=== PATIENT | male | born 1960 | race Caucasian/White ===

== ENCOUNTER 2020-05-03 18:07 | Inpatient (IN) | payer MEDICARE ==
[~2020-05-03] VITALS: Ht 162.6 cm; Wt 96.1 kg
[~2020-05-03 18:07] MED LIST: AMIO200T33 PO; APIX5TAB PO; CARV25TA55 PO; FURO1TAB33 PO; HYDR-4833 PO; LISI2.5T47 PO; TRAM-297 PO
[2020-05-03 23:48] LABS: Basophils # (auto) 0 10 ^3/uL (0-0.2); Eosinophils # (auto) 0 10 ^3/uL (0-0.8); Eosinophils % (auto) 0.1 % (0.0-7.0); Hematocrit 33.1 % (41.0-53.0); Hemoglobin 11.3 g/dL (13.5-17.5); Lymphocytes # (auto) 0.2 10 ^3/uL (0.4-5.4); Lymphocytes % (auto) 3.6 % (10.0-50.0); Mean Corpuscular Hemoglobin 30.3 pg (28.0-32.0); Mean Corpuscular Volume 89.1 fL (80.0-100.0); Monocytes # (auto) 0.3 10 ^3/uL (0-1.3); Monocytes % (auto) 4.4 % (0.0-12.0); Neutrophils # (auto) 5.4 10 ^3/uL (1.6-8.6); Neutrophils % (auto) 91.9 % (37.0-80.0); Nucleated Red Blood Cells % 0.1 %; Platelet Count (auto) 178 10^3/uL (140-450); Red Blood Cells 3.72 10^6/uL (4.5-5.90); Red Cell Distribution Width 13.3 % (11.8-14.3); White Blood Cell 5.9 10^3/uL (4.4-10.8)
[2020-05-04] LABS: Urine Bacteria NONE SEEN /hpf (None Seen); Urine Blood 2+ /uL (Negative); Urine Hyaline Cast FEW /lpf (0 - 2); Urine Mucus FEW (None Seen); Urine Specific Gravity 1.019 (1.001-1.035); Urine WBC 4 /hpf (0 - 3)
[2020-05-04 00:02] LABS: INR 1.27 (0.9-1.15); Partial Thromboplastin Time 42.9 sec (23.0-31.2)
[2020-05-04 00:03] LABS: Albumin 2.8 g/dL (3.4-5.0); Anion Gap 7 (5-15); BUN/Creatinine Ratio 30.5; Blood Urea Nitrogen 32 mg/dL (7-18); Calcium 9.3 mg/dL (8.5-10.1); Carbon Dioxide 25 mmol/L (21-32); Chloride 100 mmol/L (98-107); GFR African American 92 mL/min; GFR Non-African American 76 mL/min; Glucose 95 mg/dL (74-106); Magnesium 2.2 mg/dL (1.6-2.6); Potassium 4.3 mmol/L (3.5-5.1); Sodium 132 mmol/L (136-145)
[2020-05-04 00:08] LABS: Alanine Aminotransferase 16 U/L (16-61); Alkaline Phosphatase 72 U/L (45-117); Aspartate Aminotransferase 20 U/L (15-37); Bilirubin, Total 0.7 mg/dL (0.2-1.0); Total Protein 7.3 g/dL (6.4-8.2)
[2020-05-04] MEDS ORDERED: DexAMETHasone SOD PHOS 4 MG/1ML SDV INJ IV SCH ×2 (02:00→10:00)
[2020-05-04] MEDS ORDERED: AZITHROMYCIN 500MG/ 250ML 250 ML IV SCH (02:00)
[2020-05-04] MEDS ORDERED: NITROGLYCERIN 0.4 MG SL TAB SL PRN (02:00)
[2020-05-04] MEDS ORDERED: ONDANSETRON HCL 4 MG/2 ML VIAL IV PRN (02:00)
[2020-05-04] MEDS ORDERED: MORPHINE SULFATE 4 MG/ML SYR/VIAL IV PRN (02:00)
[2020-05-04] MEDS ORDERED: MORPHINE SULF INJ 2 MG/ML SYRINGE 1ML IV PRN (02:00)
[2020-05-04] MEDS ORDERED: ACETAMINOPHEN 500 MG TAB PO PRN (02:00)
--- NOTE | 2020-05-04 03:40 | NUR ---
TELE ADMIT FROM ER Assumed care of patient who is COVID positive, alert and oriented, currently on 10L face mask with no S/S of distress or SOB noted at this time, 02 Saturation 93%. Patient is bedrest, bedside commode with max assist. POC discussed with patient, all questions answered, verbalized understanding. Patient oriented to room and hospital policies. Bed is locked, in lowest position, side railsx2, alarm on. Call light within reach and patient is encouraged to call for assistance as needed. Will continue to monitor Q1hr/PRN.
[2020-05-04 04:23] VITALS: BP 105/70
[2020-05-04] MEDS ORDERED: CARV6.2551 PO (04:51)
[2020-05-04 05:00] VITALS: BP 105/70
--- NOTE | 2020-05-04 07:37 | NUR ---
CARE ENDORSED TO DAY SHIFT RN
[2020-05-04 08:00] VITALS: BP 111/69
--- NOTE | 2020-05-04 09:30 | NUR ---
DR UZMA LANG
[2020-05-04] MEDS ORDERED: FUROSEMIDE 20 MG/2 ML VIAL IV ONE (09:45)
[2020-05-04] MEDS: AZITHROMYCIN 500MG/ 250ML 250 ML IV SCH (10:00)
--- NOTE | 2020-05-04 11:00 | NUR ---
WOUND CARE NOTE: IN TO SEE PATIENT AT THIS TIME PER WOUND CARE CONSULT REQUEST. PATIENT ADMITTED TO [facility] WITH DIAGNOSIS OF COVID 19, PNA. CURRENT DANUTA SCORE IS 16. PATIENT HAS HISTORY WITH CHRONIC VENOUS STASIS ULCERS TO THE LEFT CALF. PATIENT STATES THAT WOUNDS OPEN AND THEN CLOSE, AGAIN AND AGAIN. CURRENTLY WOUNDS ARE ALL SCABBED CLOSED. PATIENT FURTHER STATES THAT PATIENT APPLIES SILVADENE CREAM PER MD ORDER TO THESE WOUNDS, AND WOULD LIKE TO CONTINUE WITH SILVADENE CREAM TREATMENT. WOUND PHOTOS TAKEN UPON ADMIT, AND AGAIN AT THIS TIME FOR REFERENCE. NO OTHER WOUND NOTED. RECOMMEND: FREQUENT TURN SCHEDULE Q 2 HOURS, PRN CONDITION PERMITS, WITH PRESSURE REDISTRIBUTION USING PILLOWS/WEDGES, ELEVATION OF BLE UP ON PILLOWS AND ELEVATION OF BED KNEE GATCH FOR EDEMA CONTROL, DAILY/PRN APPLICATION WITH SILVADENE CREAM TO SCABBED WOUNDS OF LLE, SKIN/WOUND CARE PLAN. NO FURTHER WOUND CARE MONITORING NEEDED. Addendum: 05/04/20 at 1624 by Cathy Trejo RN Amended: Links added.
--- NOTE | 2020-05-04 11:30 | NUR ---
DR EDUIN LANG
[2020-05-04 12:03] LABS: Magnesium 2.4 mg/dL (1.6-2.6)
[2020-05-04] MEDS: APIXABAN 5 MG TAB PO SCH ×2 (12:04→21:48)
[2020-05-04 12:10] LABS: Lactate Dehydrogenase 240 U/L (87-241)
[2020-05-04] MEDS ORDERED: REMDESIVIR PER PHARMACY 0 ML IV SCH (12:15)
[2020-05-04 12:16] LABS: CRP High Sensitivity > 19 mg/dL (< 0.3)
[2020-05-04] MEDS ORDERED: REMDESIVIR 200 MG in NS 210ml LOADING DOSE ADULT IV ONE (15:00)
--- NOTE | 2020-05-04 15:30 | NUR ---
REMDESIVIR LOADING DOSE STARTED
--- NOTE | 2020-05-04 17:00 | NUR ---
ARLENE JULIEN BOW STAPLER ROUNDING.
--- NOTE | 2020-05-04 17:00 | NUR ---
PATIENT TOLERATED REMDESIVIR WELL, VS FOLLOWS 90% 69 28 127/81 92% 61 28 122/72 90% 58 30 116/75
[2020-05-04 17:17] VITALS: BP 116/75
--- NOTE | 2020-05-04 18:30 | NUR ---
UNABLE TO OBTAIN PHONE NUMBER TO [facility] FOR PACEMAKER INTERROGATION.
[2020-05-04 22:00] VITALS: BP 134/73
[2020-05-05 05:00] VITALS: BP 125/77
--- NOTE | 2020-05-05 07:00 | NUR ---
Opening Shift Note Assumed care of patient, awake and alert. A/O X 4. No S/S of distress/SOB or pain. Patient is on 15L Oxymizer. Lungs sound diminished bilaterally. Skin is warm and dry. Lower legs appear to have venous stasis ulceration and discoloration. Feet are cold and pulses are felt at the posterior tibialis point. Instructed on POC and to call for assist PRN. Safety measures are in place and the call light is within reach of the patient. Will continue to monitor for changes Q1hr and PRN.
[2020-05-05 07:02] LABS: Albumin 2.3 g/dL (3.4-5.0); Anion Gap 5 (5-15); Blood Urea Nitrogen 22 mg/dL (7-18); Calcium 9.7 mg/dL (8.5-10.1); Carbon Dioxide 25 mmol/L (21-32); Chloride 106 mmol/L (98-107); Glucose 108 mg/dL (74-106); Potassium 3.7 mmol/L (3.5-5.1); Sodium 136 mmol/L (136-145)
[2020-05-05 07:03] LABS: Basophils # (auto) 0 10 ^3/uL (0-0.2); Basophils % (auto) 0.1 % (0.0-2.0); Eosinophils # (auto) 0 10 ^3/uL (0-0.8); Eosinophils % (auto) 0.7 % (0.0-7.0); Hematocrit 34.4 % (41.0-53.0); Hemoglobin 11.5 g/dL (13.5-17.5); Lymphocytes # (auto) 0.3 10 ^3/uL (0.4-5.4); Lymphocytes % (auto) 5.8 % (10.0-50.0); Mean Corpuscular Hemoglobin 29.9 pg (28.0-32.0); Mean Corpuscular Hgb Conc. 33.5 g/dL (32.0-36.0); Mean Corpuscular Volume 89.3 fL (80.0-100.0); Monocytes # (auto) 0.3 10 ^3/uL (0-1.3); Neutrophils # (auto) 3.9 10 ^3/uL (1.6-8.6); Neutrophils % (auto) 87.4 % (37.0-80.0); Nucleated Red Blood Cells % 0.1 %; Platelet Count (auto) 179 10^3/uL (140-450); Red Blood Cells 3.85 10^6/uL (4.5-5.90); Red Cell Distribution Width 13.7 % (11.8-14.3); White Blood Cell 4.4 10^3/uL (4.4-10.8)
[2020-05-05 07:12] LABS: Alanine Aminotransferase 14 U/L (16-61); Alkaline Phosphatase 66 U/L (45-117); Aspartate Aminotransferase 18 U/L (15-37); Bilirubin, Total 0.5 mg/dL (0.2-1.0); CRP High Sensitivity > 19 mg/dL (< 0.3); GFR African American 113 mL/min; GFR Non-African American 94 mL/min; Total Protein 7.2 g/dL (6.4-8.2)
[2020-05-05 08:22] VITALS: BP 131/85
[2020-05-05 09:00] VITALS: BP 131/85
[2020-05-05] MEDS: APIXABAN 5 MG TAB PO SCH ×2 (09:45→21:43)
[2020-05-05] MEDS: CHOLECALCIFEROL (VITD3) 2,000 UNIT CAP PO SCH (09:45)
[2020-05-05] MEDS: ASCORBIC ACID 1,000 MG TAB PO SCH (09:45)
[2020-05-05] MEDS: ZINC SULFATE 220mg CAP or TAB PO SCH (09:45)
[2020-05-05] MEDS: DexAMETHasone SOD PHOS 10MG/1ML VIAL INJ IV SCH (09:46)
[2020-05-05] MEDS: PANTOPRAZOLE 40 MG/10 ML VIAL INJ IV SCH (09:46)
[2020-05-05] MEDS: FUROSEMIDE 20 MG/2 ML VIAL IV SCH (09:46)
[2020-05-05] MEDS: AZITHROMYCIN 500MG/ 250ML 250 ML IV SCH (11:00)
--- NOTE | 2020-05-05 12:25 | NUR ---
Dr. Montoya office called The office of the doctor who placed the patient's pacemaker was called and informed that an interrogation of the device is needed. Spoke with Daniela. She advised me that she would let the doctor know and get back to me. Hospital contact information provided. Awaiting her call back. Office number [phone].
[2020-05-05 13:00] VITALS: BP 127/73
[2020-05-05] MEDS: REMDESIVIR 100 MG in SODIUM CHL 0.9% 250 ML IV SCH (16:20)
--- NOTE | 2020-05-05 16:20 | NUR ---
Remdesivir treatment vitals HR 60, RR 36, BP 129/79, Temp 96.2, O2 93%. Addendum: 05/05/20 at 1713 by Argentina Hall RN RN 1635 vitals HR 61, RR 40, BP 118/85, temp 98.0, O2 90%. Addendum: 05/05/20 at 1856 by Argentina Hall RN RN Post treatment vitals HR 72, RR 36, BP 120/75, Temp 97.6, O2 91%.
[2020-05-05] MEDS: SILVER SULFADIAZINE 1 % TOPICAL CREAM 50GM TOP SCH (16:45)
[2020-05-05 17:00] VITALS: BP 129/79
--- NOTE | 2020-05-05 17:05 | NUR ---
Patient unable to tolerate any significant movement at this time. Addendum: 05/05/20 at 1706 by Argentina Hall RN RN Amended: Links added.
[2020-05-05 22:00] VITALS: BP 115/70
[2020-05-06 05:00] VITALS: BP 119/73
--- NOTE | 2020-05-06 07:10 | NUR ---
Opening Shift Note Assumed care of patient, awake and alert. A/O X 4. No S/S of distress/SOB or pain. Patient is on 10L Oxymizer. Lungs sound diminished bilaterally. Skin is warm and dry. Lower legs appear to have venous stasis ulceration and discoloration. Feet are cold and pulses are felt at the posterior tibialis point. Patient reports he feels much better and his sense of taste and smell have returned. Instructed on POC and to call for assist PRN. Safety measures are in place and the call light is within reach of the patient. Will continue to monitor for changes Q1hr and PRN.
[2020-05-06 07:18] LABS: Basophils # (auto) 0 10 ^3/uL (0-0.2); Eosinophils # (auto) 0 10 ^3/uL (0-0.8); Hematocrit 33.6 % (41.0-53.0); Hemoglobin 11.5 g/dL (13.5-17.5); Lymphocytes # (auto) 0.3 10 ^3/uL (0.4-5.4); Lymphocytes % (auto) 4.7 % (10.0-50.0); Mean Corpuscular Hemoglobin 30.3 pg (28.0-32.0); Mean Corpuscular Hgb Conc. 34.3 g/dL (32.0-36.0); Mean Corpuscular Volume 88.3 fL (80.0-100.0); Monocytes # (auto) 0.4 10 ^3/uL (0-1.3); Monocytes % (auto) 6.7 % (0.0-12.0); Neutrophils % (auto) 88.6 % (37.0-80.0); Platelet Count (auto) 204 10^3/uL (140-450); Red Cell Distribution Width 13.4 % (11.8-14.3); White Blood Cell 5.7 10^3/uL (4.4-10.8)
[2020-05-06 07:22] LABS: Albumin 2.2 g/dL (3.4-5.0); Calcium 9.6 mg/dL (8.5-10.1); Potassium 4.1 mmol/L (3.5-5.1)
--- NOTE | 2020-05-06 07:30 | NUR ---
Dr. Berman at bedside Dr. Cullen parker. Updated on the patient's status.
[2020-05-06 07:32] LABS: BUN/Creatinine Ratio 30.7; Bilirubin, Total 0.5 mg/dL (0.2-1.0); CRP High Sensitivity 18.9 mg/dL (< 0.3)
[2020-05-06 09:00] VITALS: BP 114/68
[2020-05-06] MEDS: PANTOPRAZOLE 40 MG/10 ML VIAL INJ IV SCH (10:22)
[2020-05-06] MEDS: DexAMETHasone SOD PHOS 10MG/1ML VIAL INJ IV SCH (10:22)
[2020-05-06] MEDS: ASCORBIC ACID 1,000 MG TAB PO SCH (10:23)
[2020-05-06] MEDS: CHOLECALCIFEROL (VITD3) 2,000 UNIT CAP PO SCH (10:23)
[2020-05-06] MEDS: APIXABAN 5 MG TAB PO SCH ×2 (10:23→22:01)
[2020-05-06] MEDS: ZINC SULFATE 220mg CAP or TAB PO SCH (10:23)
[2020-05-06] MEDS: AZITHROMYCIN 500MG/ 250ML 250 ML IV SCH (10:23)
[2020-05-06] MEDS: FUROSEMIDE 20 MG/2 ML VIAL IV SCH (12:00)
[2020-05-06 13:00] VITALS: BP 123/82
[2020-05-06] MEDS: REMDESIVIR 100 MG in SODIUM CHL 0.9% 250 ML IV SCH (15:20)
--- NOTE | 2020-05-06 15:20 | NUR ---
Remdesivir Treatment vitals Pre-treatment HR 61, RR 28, BP 123/75, Temp 97.4, O2 88%. Addendum: 05/06/20 at 1658 by Argentina Hall RN RN 1535 vitals HR 61, RR 22, BP 127/66, Temp 98.3, O2 89%. Addendum: 05/06/20 at 1912 by Argentina Hall RN RN Post treatment vitals HR 56, RR 36, BP 118/73, O2 90%.
--- NOTE | 2020-05-06 15:49 | NUR ---
Bereket LOUVER MORTISER OPERATOR at bedside LOUVER MORTISER OPERATOR Bereket at bedside discussing the POC with the patient. All questions and concerns were answered at this time.
[2020-05-06] MEDS: SILVER SULFADIAZINE 1 % TOPICAL CREAM 50GM TOP SCH (16:55)
--- NOTE | 2020-05-06 16:59 | NUR ---
Patient unable to tolerate at this time. 10L O2. Addendum: 05/06/20 at 1659 by Argentina Hall RN RN Amended: Links added.
[2020-05-06 17:00] VITALS: BP 133/83
--- NOTE | 2020-05-06 19:50 | NUR ---
Opening shift note Assumed care of patient from day shift RN. Patient A&Ox4, respirations even and non-labored without s/s of distress at this time. Discussed POC and answered patients questions regarding his bed assignment, patient verbalized understanding. Bed in lowest locked position with 2 side rails up, call light within reach. Will continue to monitor Q1hr and PRN.
[2020-05-06 21:38] VITALS: BP 123/81
[2020-05-07] VITALS (7 sets, daily range): BP systolic 119–138; BP diastolic 73–82
--- NOTE | 2020-05-07 07:45 | NUR ---
Opening Shift Note Assumed care of patient, awake and alert. No S/S of distress/SOB or pain. Patient is on 10L Oxymizer. Instructed on POC and to call for assist PRN, will continue to monitor for changes Q1hr and PRN. Bed is locked and in lowest position. Call light within reach.
--- NOTE | 2020-05-07 08:04 | NUR ---
Closing shift note Patient resting without s/s of distress at this time. Endorsed care to day shift RN
--- NOTE | 2020-05-07 09:55 | NUR ---
Nutrition Assessment Est energy needs 5200-0869 kcal (14-18 kcal/kg BW 102.5kg) est protein needs 59-77g (1-1.3g/kg IBW 59kg) will monitor and reassess prn. Addendum: 05/07/20 at [address] Amended: Links added.
[2020-05-07] MEDS: ASCORBIC ACID 1,000 MG TAB PO SCH (10:00)
[2020-05-07] MEDS: AZITHROMYCIN 500MG/ 250ML 250 ML IV SCH (10:09)
[2020-05-07] MEDS: FUROSEMIDE 20 MG/2 ML VIAL IV SCH (10:09)
[2020-05-07] MEDS: PANTOPRAZOLE 40 MG/10 ML VIAL INJ IV SCH (10:10)
[2020-05-07] MEDS: APIXABAN 5 MG TAB PO SCH ×2 (10:10→22:14)
[2020-05-07] MEDS: CHOLECALCIFEROL (VITD3) 2,000 UNIT CAP PO SCH (10:10)
[2020-05-07] MEDS: ZINC SULFATE 220mg CAP or TAB PO SCH (10:11)
[2020-05-07] MEDS: SILVER SULFADIAZINE 1 % TOPICAL CREAM 50GM TOP SCH (10:11)
[2020-05-07 12:16] LABS: Basophils # (auto) 0 10 ^3/uL (0-0.2); Eosinophils # (auto) 0 10 ^3/uL (0-0.8); Hematocrit 33.7 % (41.0-53.0); Hemoglobin 11.8 g/dL (13.5-17.5); Lymphocytes # (auto) 0.4 10 ^3/uL (0.4-5.4); Lymphocytes % (auto) 3.9 % (10.0-50.0); Mean Corpuscular Hemoglobin 30.9 pg (28.0-32.0); Mean Corpuscular Hgb Conc. 35.1 g/dL (32.0-36.0); Mean Corpuscular Volume 88.1 fL (80.0-100.0); Monocytes # (auto) 0.9 10 ^3/uL (0-1.3); Monocytes % (auto) 8.2 % (0.0-12.0); Neutrophils # (auto) 9.5 10 ^3/uL (1.6-8.6); Neutrophils % (auto) 87.9 % (37.0-80.0); Nucleated Red Blood Cells % 0.1 %; Platelet Count (auto) 239 10^3/uL (140-450); Red Blood Cells 3.82 10^6/uL (4.5-5.90); Red Cell Distribution Width 13.4 % (11.8-14.3); White Blood Cell 10.8 10^3/uL (4.4-10.8)
[2020-05-07 12:54] LABS: Potassium 4.1 mmol/L (3.5-5.1)
[2020-05-07 13:06] LABS: Albumin 2.5 g/dL (3.4-5.0); BUN/Creatinine Ratio 28.3; Bilirubin, Total 0.6 mg/dL (0.2-1.0); Calcium 9.8 mg/dL (8.5-10.1)
[2020-05-07] MEDS: DexAMETHasone SOD PHOS 10MG/1ML VIAL INJ IV SCH (14:06)
[2020-05-07] MEDS: REMDESIVIR 100 MG in SODIUM CHL 0.9% 250 ML IV SCH (15:23)
--- NOTE | 2020-05-07 16:17 | NUR ---
Patient requested that P.T. Evaluation be done tomorrow.
--- NOTE | 2020-05-07 16:55 | NUR ---
IV REMOVAL AND INSERTION IV access obtained, via clean sterile technique by inserting [22] gauge catheter at [LEFT FOREARM] after [2] attempt(s). IV secured properly. No trauma to site. Patient tolerated well. IV removal IV DC'd ON RIGHT AC with clean sterile technique, catheter fully intact. Pressure dressing applied to site. Patient tolerated well.
[2020-05-08 05:00] VITALS: BP 127/78
--- NOTE | 2020-05-08 07:13 | NUR ---
PT RESTED WELL THROUGHOUT THE NIGHT. IS NOW AWAKE . NO DISTRESS.
--- NOTE | 2020-05-08 07:30 | NUR ---
Opening Shift Note RECEIVED REPORT FROM NOC RN. Assumed care of patient, awake and alert. PATIENT ON OXYGEN AT 10 LPM VIA OXYMIZER WITH no S/S of distress/SOB or pain. BED IN LOWEST, LOCKED POSITION WITH SIDERAILS UP x2 AND CALL LIGHT WITHIN REACH. Instructed on POC and to call for assist PRN, will continue to monitor for changes Q1hr and PRN.
[2020-05-08 09:00] VITALS: BP 129/72
[2020-05-08] MEDS: FUROSEMIDE 20 MG/2 ML VIAL IV SCH (11:00)
[2020-05-08] MEDS: ZINC SULFATE 220mg CAP or TAB PO SCH (11:00)
[2020-05-08] MEDS: APIXABAN 5 MG TAB PO SCH ×2 (11:00→21:45)
[2020-05-08] MEDS: DexAMETHasone SOD PHOS 10MG/1ML VIAL INJ IV SCH (11:00)
[2020-05-08] MEDS: PANTOPRAZOLE 40 MG/10 ML VIAL INJ IV SCH (11:00)
[2020-05-08] MEDS: CHOLECALCIFEROL (VITD3) 2,000 UNIT CAP PO SCH (11:01)
[2020-05-08] MEDS: SILVER SULFADIAZINE 1 % TOPICAL CREAM 50GM TOP SCH (11:01)
[2020-05-08] MEDS: ASCORBIC ACID 1,000 MG TAB PO SCH (11:01)
[2020-05-08 11:05] LABS: Hematocrit 34.7 % (41.0-53.0); Hemoglobin 11.8 g/dL (13.5-17.5); Mean Corpuscular Hemoglobin 30.1 pg (28.0-32.0); Mean Corpuscular Volume 88.6 fL (80.0-100.0); Platelet Count (auto) 227 10^3/uL (140-450); Red Blood Cells 3.91 10^6/uL (4.5-5.90); Red Cell Distribution Width 13.5 % (11.8-14.3)
[2020-05-08 11:15] LABS: Basophils % (manual) 0 (0.0-2.0); Blast Cells 0; Eosinophils % (manual) 0 (0-7); Potassium 4.4 mmol/L (3.5-5.1); Promyelocytes % 0; Reactive Lymphocytes 0
[2020-05-08 11:25] LABS: Albumin 2.4 g/dL (3.4-5.0); Bilirubin, Total 0.5 mg/dL (0.2-1.0); CRP High Sensitivity 7.18 mg/dL (< 0.3); Calcium 9.3 mg/dL (8.5-10.1); Total Protein 7.1 g/dL (6.4-8.2)
[2020-05-08 13:00] VITALS: BP 127/66
[2020-05-08] MEDS: AZITHROMYCIN 500MG/ 250ML 250 ML IV SCH (14:06)
[2020-05-08 14:30] LABS: Band Neutrophils % (manual) 1; Lymphocytes % (manual) 6 (10.0-50.0); Metamyelocytes % 1; Monocytes % (manual) 6 (0-12); Myelocytes % 3
[2020-05-08] MEDS: REMDESIVIR 100 MG in SODIUM CHL 0.9% 250 ML IV SCH (16:36)
[2020-05-08 17:00] VITALS: BP 125/74
--- NOTE | 2020-05-08 19:43 | NUR ---
Opening Shift Note Assumed care of patient, awake and alert. No S/S of distress/SOB or pain. Instructed on POC and to call for assist PRN, will continue to monitor for changes Q1hr and PRN. Bed in low position and call light within reach. Fall precautions in place.
[2020-05-09 01:24] VITALS: BP 133/78
[2020-05-09 05:30] VITALS: BP 130/80
[2020-05-09 06:55] LABS: Hematocrit 33.4 % (41.0-53.0); Hemoglobin 11.6 g/dL (13.5-17.5); Mean Corpuscular Hemoglobin 30.4 pg (28.0-32.0); Mean Corpuscular Hgb Conc. 34.6 g/dL (32.0-36.0); Mean Corpuscular Volume 87.9 fL (80.0-100.0); Platelet Count (auto) 198 10^3/uL (140-450); Red Cell Distribution Width 13.4 % (11.8-14.3); White Blood Cell 7.7 10^3/uL (4.4-10.8)
--- NOTE | 2020-05-09 07:00 | NUR ---
REPORT GIVEN TO DAYSHIFT RN PATIENT DENIES SOB DISTRESS OR PAIN
[2020-05-09 07:24] LABS: Band Neutrophils % (manual) 0; Basophils % (manual) 0 (0.0-2.0); Blast Cells 0; Metamyelocytes % 0; Promyelocytes % 0; Reactive Lymphocytes 0
[2020-05-09 08:49] LABS: Eosinophils % (manual) 1 (0-7); Lymphocytes % (manual) 5 (10.0-50.0); Monocytes % (manual) 4 (0-12); Myelocytes % 4
[2020-05-09] MEDS: DexAMETHasone SOD PHOS 10MG/1ML VIAL INJ IV SCH (09:54)
[2020-05-09] MEDS: AZITHROMYCIN 500MG/ 250ML 250 ML IV SCH (09:55)
[2020-05-09] MEDS: PANTOPRAZOLE 40 MG/10 ML VIAL INJ IV SCH (09:55)
[2020-05-09] MEDS: FUROSEMIDE 20 MG/2 ML VIAL IV SCH (09:55)
[2020-05-09] MEDS: CHOLECALCIFEROL (VITD3) 2,000 UNIT CAP PO SCH (09:56)
[2020-05-09] MEDS: APIXABAN 5 MG TAB PO SCH ×2 (09:56→21:38)
[2020-05-09] MEDS: ASCORBIC ACID 1,000 MG TAB PO SCH (09:56)
[2020-05-09] MEDS: ZINC SULFATE 220mg CAP or TAB PO SCH (09:56)
[2020-05-09] MEDS: SILVER SULFADIAZINE 1 % TOPICAL CREAM 50GM TOP SCH (09:57)
[2020-05-09 13:00] VITALS: BP 118/80
[2020-05-09] MEDS: DOCUSATE SOD 100 MG CAP PO PRN (16:37)
[2020-05-09 17:00] VITALS: BP 120/71
--- NOTE | 2020-05-09 20:50 | NUR ---
PATIENT AWAKE AND ALERT, RESTING IN BED DENIES SOB DISTRESS OR PAIN.
--- NOTE | 2020-05-09 20:50 | NUR ---
Patient educated on how to use Incentive spirometer patient verbalized understanding
[2020-05-09 22:00] VITALS: BP 107/65
[2020-05-10 05:12] VITALS: BP 109/73
--- NOTE | 2020-05-10 06:50 | NUR ---
Report given to dayshift RN patient denies sob distress or pain.
[2020-05-10 08:27] VITALS: BP 127/80
[2020-05-10 09:00] VITALS: BP 127/80
[2020-05-10] MEDS: CHOLECALCIFEROL (VITD3) 2,000 UNIT CAP PO SCH (10:00)
--- NOTE | 2020-05-10 10:00 | NUR ---
PATIENT O2 DECREASED FROM 10 LTRS DOWN TO 8 LTRS. O2 PERCENTAGE 93%
[2020-05-10] MEDS: AZITHROMYCIN 500MG/ 250ML 250 ML IV SCH (10:29)
[2020-05-10] MEDS: PANTOPRAZOLE 40 MG/10 ML VIAL INJ IV SCH (10:29)
[2020-05-10] MEDS: DexAMETHasone SOD PHOS 10MG/1ML VIAL INJ IV SCH (10:29)
[2020-05-10] MEDS: ZINC SULFATE 220mg CAP or TAB PO SCH (10:30)
[2020-05-10] MEDS: ASCORBIC ACID 1,000 MG TAB PO SCH (10:30)
[2020-05-10] MEDS: APIXABAN 5 MG TAB PO SCH ×2 (10:30→21:37)
[2020-05-10] MEDS: SILVER SULFADIAZINE 1 % TOPICAL CREAM 50GM TOP SCH (10:31)
[2020-05-10] MEDS: FUROSEMIDE 40 MG/4 ML VIAL IV SCH (10:47)
--- NOTE | 2020-05-10 11:41 | NUR ---
Nutrition Followup Note Wt 98.0kg Pt is covid positive in covid isolation. Pt is no signs of distress per RN note. Pt appetite appears to be fair aeb pt with 50-75% po intake of Cardiac 2g Na diet. Est energy needs 6584-7142 kcal (14-18 kcal/kg BW 102.5kg) est protein needs 59-77g (1-1.3g/kg IBW 59kg) will monitor and reassess prn. Labs: BUN 34H, GLUC 163H, Alb 2.4L BM: Pt with 1 BM 05/07 per Rn note Skin: BS 18 mod risk, full details in transitional care manager note PES: Obesity r/t caloric intake in excess of needs aeb pt with a BMI of 38.8kg/m2 Comments 1) Continue to monitor po intake, labs, skin 2) refer pt to [facility] on Dc 3) Continue current plan of care Expected Outcomes/Goals: 1) pt po intake >75% 2) pt to gain no further wt while in hospital 3) f/u 3-5 days
--- NOTE | 2020-05-10 13:00 | NUR ---
PATIENT O2 DECREASED FROM 8 LTRS DOWN TO 6 LTRS. PATIENT O2 LEVEL 93%
[2020-05-10] MEDS: DOCUSATE SOD 100 MG CAP PO PRN (13:38)
--- NOTE | 2020-05-10 16:25 | NUR ---
PATIENT PLACED ON 6 LTRS NASAL CANULA. O2 SATURATION 93%
[2020-05-10] MEDS: LACTULOSE 20Gm/30ML SOLN PO PRN (19:00)
--- NOTE | 2020-05-10 20:00 | NUR ---
Opening Shift Note Assumed care of patient, awake and alert. No S/S of distress/SOB or pain. Patient is on 6L NC. Instructed on POC and to call for assist PRN, will continue to monitor for changes Q1hr and PRN.
[2020-05-11] MEDS: LACTULOSE 20Gm/30ML SOLN PO PRN (01:03)
[2020-05-11 07:01] LABS: Hematocrit 33.7 % (41.0-53.0); Hemoglobin 11.4 g/dL (13.5-17.5); Mean Corpuscular Hemoglobin 30.5 pg (28.0-32.0); Mean Corpuscular Hgb Conc. 33.9 g/dL (32.0-36.0); Platelet Count (auto) 185 10^3/uL (140-450); Red Blood Cells 3.74 10^6/uL (4.5-5.90); Red Cell Distribution Width 13.5 % (11.8-14.3); White Blood Cell 7.3 10^3/uL (4.4-10.8)
[2020-05-11 07:42] LABS: Potassium 4.1 mmol/L (3.5-5.1)
[2020-05-11 07:52] LABS: Basophils % (manual) 0 (0.0-2.0); Blast Cells 0; Eosinophils % (manual) 0 (0-7); Metamyelocytes % 0; Promyelocytes % 0; Reactive Lymphocytes 0
[2020-05-11 08:08] LABS: Albumin 2.4 g/dL (3.4-5.0); BUN/Creatinine Ratio 27.7; Bilirubin, Total 0.6 mg/dL (0.2-1.0); CRP High Sensitivity 6.06 mg/dL (< 0.3); Calcium 9.4 mg/dL (8.5-10.1); Magnesium 2.5 mg/dL (1.6-2.6); Phosphorus 2.8 mg/dL (2.5-4.90); Total Protein 6.8 g/dL (6.4-8.2)
[2020-05-11 08:37] LABS: Band Neutrophils % (manual) 2; Lymphocytes % (manual) 3 (10.0-50.0); Monocytes % (manual) 9 (0-12); Myelocytes % 1
[2020-05-11 09:00] VITALS: BP 119/72
[2020-05-11] MEDS: FUROSEMIDE 40 MG/4 ML VIAL IV SCH ×2 (10:23→10:33)
[2020-05-11] MEDS: PANTOPRAZOLE 40 MG/10 ML VIAL INJ IV SCH ×2 (10:24→10:33)
[2020-05-11] MEDS: APIXABAN 5 MG TAB PO SCH ×3 (10:24→22:19)
[2020-05-11] MEDS: CHOLECALCIFEROL (VITD3) 2,000 UNIT CAP PO SCH ×2 (10:24→10:34)
[2020-05-11] MEDS: ASCORBIC ACID 1,000 MG TAB PO SCH ×2 (10:24→10:34)
[2020-05-11] MEDS: ZINC SULFATE 220mg CAP or TAB PO SCH ×2 (10:24→10:33)
[2020-05-11] MEDS: SILVER SULFADIAZINE 1 % TOPICAL CREAM 50GM TOP SCH ×2 (10:25→10:34)
[2020-05-11] MEDS: DexAMETHasone SOD PHOS 10MG/1ML VIAL INJ IV SCH ×2 (10:25→10:32)
[2020-05-11 13:00] VITALS: BP 107/73
--- NOTE | 2020-05-11 15:52 | NUR ---
Assessment Patient is a 59- year-old male who is alert and oriented. Prior to admission patient lived home with his brother Sebastien and functioned independently. Patient can care for his own ADLs. Patient has a cane, two walkers and an electric scooter for home use. Per patient he will return home to his prior living arrangements post discharge and his brother Sebastien will transport patient home at anytime on discharge day. Advised patient there is a social service consult for home oxygen and home health services for a safety evaluation. Per patient he is on service with [facility] but would like to change home health services with [facility]. Informed patient he has the right to participate in all discharge planning. Patient does not have an advance directive. Patient has been provided with information for an advanced directive. Patient verbalized understanding and agrees to discharge plan. Faxed clinical information to [facility] and [facility]. Per Mariola with [facility] order has been received and they will deliver portable and concentrate oxygen to patient home and family will bring portable to hospital upon d/c day. Per Roxanne with [facility] Ph: [phone] patient has been accepted and service to start within 24-48hrs upon d.c day. Addendum: 05/11/20 at 1557 by CLARISA MOORE Amended: Links added.
[2020-05-11 16:00] VITALS: BP 109/73
--- NOTE | 2020-05-11 19:45 | NUR ---
Opening Shift Note Assumed care of patient. Awake, alert and oriented x4. No S/S of distress/SOB or pain. Pt is on 4L NC with even and unlabored respirations. Instructed on POC and to call for assist PRN. Bed locked, in lowest position, call light within reach, side rails up x2. Will continue to monitor for changes Q1hr and PRN.
[2020-05-12] VITALS: BP 112/74
[2020-05-12 08:00] VITALS: BP 112/67
[2020-05-12] MEDS: SILVER SULFADIAZINE 1 % TOPICAL CREAM 50GM TOP SCH (09:05)
[2020-05-12] MEDS: FUROSEMIDE 40 MG/4 ML VIAL IV SCH (09:05)
[2020-05-12] MEDS: ASCORBIC ACID 1,000 MG TAB PO SCH (09:06)
[2020-05-12] MEDS: ZINC SULFATE 220mg CAP or TAB PO SCH (09:06)
[2020-05-12] MEDS: APIXABAN 5 MG TAB PO SCH (09:06)
[2020-05-12] MEDS: PANTOPRAZOLE 40 MG/10 ML VIAL INJ IV SCH (09:06)
[2020-05-12] MEDS: DexAMETHasone SOD PHOS 10MG/1ML VIAL INJ IV SCH (09:06)
[2020-05-12] MEDS: CHOLECALCIFEROL (VITD3) 2,000 UNIT CAP PO SCH (09:07)
--- NOTE | 2020-05-12 09:30 | NUR ---
Oxygen 2 L of NC, o2 sat 92-95 %. No respiratory distress noted.
--- NOTE | 2020-05-12 13:51 | NUR ---
Wound pictures taken to LLE prior DC.
--- NOTE | 2020-05-12 15:03 | NUR ---
Dr. Tracey at bedside, patient is cleared to DC home today, no need scripts.
[2020-05-12 15:30] VITALS: BP 111/71
--- NOTE | 2020-05-12 15:30 | NUR ---
Oxygen on Room air 9-92 %, No SOB noted. Addendum: 05/12/20 at 1531 by JOEY BORJAS RN o2 sat 90-92 %
[2020-05-12 16:26] VITALS: BP 113/72
--- NOTE | 2020-05-12 17:34 | NUR ---
Discharge instructions given as ordered. Encourage to follow up with PMD (Follow up with PCP in 1-[address] Tracey # [phone] Address : [address], [address], , [place], [address] ) as instructed. All questions and concerns addressed. Patient verbalized understanding. Medication reconciliation form completed and copy given to patient. IV removed with catheter intact, pressure dressing applied. Telemetry unit returned to ICU. Patient taken to vehicle via wheelchair with all personal belongings, accompanied by staff and family member. No distress noted at time of departure.
== END 2020-05-12 17:30 | disposition home health service (06) | DRG 177 ==
LOC: ER 18:07 → EDBD 18:07 → TELE 18:08 → TELE-WESTW 05-04 03:25
PROVIDERS: ADMIT Internal Medicine; ATTEND Internal Medicine
PROC: XW033E5 Introduction of Remdesivir Anti-infective into Peripheral Vein, Percutaneous Approach, New Technology Group 5 (ICD-10-PCS; principal; 2020-05-04)
PROC: 4B02XTZ Measurement of Cardiac Defibrillator, External Approach (ICD-10-PCS; 2020-05-07)
DX: U07.1 COVID-19 (principal); J12.89 Other viral pneumonia; J96.21 Acute and chronic respiratory failure with hypoxia; I50.22 Chronic systolic (congestive) heart failure; J98.11 Atelectasis; J44.0 Chronic obstructive pulmonary disease with (acute) lower respiratory infection; I48.91 Unspecified atrial fibrillation; I11.0 Hypertensive heart disease with heart failure; E66.9 Obesity, unspecified; Z68.36 Body mass index [BMI] 36.0-36.9, adult; E11.9 Type 2 diabetes mellitus without complications; M41.9 Scoliosis, unspecified; N28.9 Disorder of kidney and ureter, unspecified; Z79.01 Long term (current) use of anticoagulants; Z79.899 Other long term (current) drug therapy; Z80.52 Family history of malignant neoplasm of bladder; Z82.49 Family history of ischemic heart disease and other diseases of the circulatory system; Z95.810 Presence of automatic (implantable) cardiac defibrillator
CPT/HCPCS: 36415; 71045; 80053; 81001; 82728; 83615; 83735; 83880; 84100; 84484; 85007; 85025; 85027; 85379; 85610; 85730; 86141; 87426; 93005; 93306; 93970; 96365; 96375; 97110; C9113; G0378; J1100

== ENCOUNTER 2021-04-07 08:12 | Day surgery (SDC) | payer MEDICARE ==
[~2021-04-07] VITALS: Ht 165.1 cm; Wt 102.1 kg
[~2021-04-07 08:12] MED LIST changes: -AMIO200T33 PO; +ASCO500T11 PO; +B-COCAP34 PO; -CARV25TA55 PO; +CARV6.2551 PO; +CHOL1TAB22 PO; +FOLI1TAB6 PO; -HYDR-4833 PO; +LISI-275 PO; -LISI2.5T47 PO; +SPIR50TA5 PO; -TRAM-297 PO; +ZINC50TA20 PO; +[UNRECOGNIZED DRUG - CODE] PO
[2021-04-07] MEDS ORDERED: VANCOMYCIN 1GM/250ML 250 ML IV ONE (09:15)
[2021-04-07] MEDS ORDERED: MIDAZOLAM HCL 2MG/2ML 2ml VIAL (1mg/ml) ONE (09:38)
[2021-04-07] MEDS ORDERED: VANCOMYCIN HCL 1000 MG VL ONE ×2 (09:38→10:36)
[2021-04-07] MEDS ORDERED: fentaNYL CITRATE 100 MCG/2 ML VL ONE (09:38)
[2021-04-07] MEDS ORDERED: LIDOCAINE 2%HCL (LOCAL ANESTH.) INJ 20ML MDV ONE (09:39)
[2021-04-07] MEDS ORDERED: DOXYCYCLINE 100 MG TAB/CAP PO ONE (11:15)
== END 2021-04-07 12:40 | disposition home or self-care (01) ==
LOC: CATH 08:12
PROVIDERS: ATTEND Specialist
DX: I25.5 Ischemic cardiomyopathy (principal); I50.9 Heart failure, unspecified; I48.20 Chronic atrial fibrillation, unspecified; Z82.49 Family history of ischemic heart disease and other diseases of the circulatory system; Z83.3 Family history of diabetes mellitus; Z83.79 Family history of other diseases of the digestive system; Z20.822 Contact with and (suspected) exposure to COVID-19
CPT/HCPCS: 33264; C1882; J2250; J3010; J3370; J7030; U0003; 99152; 99153